=== PATIENT | male | born 1980 | race African-American/Black ===

== ENCOUNTER → 2017-11-18 | Outpatient (CLI) | payer OTHER ==
[~2017-11-18] MED LIST: XRL15 PO; XRL20 PO
[2017-11-18 13:18] LABS: INR 1.5 (0.9-1.1)
--- NOTE | 2017-12-17 05:43 | CODING QUERY NO DIAGNOSIS ---
TREATMENT RENDERED WITHOUT A DIAGNOSIS : 82 To promote full compliance with coding requirements relating to patient care, physician participation is requested in all cases of strap buckler uncertainty. Please assist us with providing a diagnosis/symptom for the test(s) below: A diagnosis/symptom was not documented on your Order. A valid diagnosis/symptom is required to bill all insurances. Please remember that we are unable to code a diagnosis of rule out, probable, possible, questionable, or suspected. Tests that require a diagnosis: DOS: 11/18/17 * PROTROMBIN TIME PRO DIAGNOSIS: Provider Signature: Date: Thank you Danae Varghese [facility] Information Management Once completed, please kindly fax back to [phone] For questions please call [phone]
== END | disposition home or self-care (01) ==
LOC: C.LAB 12:33
PROVIDERS: ATTEND Family Medicine
DX: Z01.89 Encounter for other specified special examinations (principal)